=== PATIENT | female | born 1985 | race Caucasian/White ===

== ENCOUNTER 2016-11-24 21:11 | Inpatient (IN) ==
[2016-11-24 21:47] LABS: Bilirubin,Urine Negative (Negative); Blood,Urine Small (Negative); Clarity,Urine Cloudy (Clear); Color,Urine Yellow (Yellow); Glucose,Urine (UA) Normal (Normal); Ketones,Urine Negative (Negative); Leukocyte Esterase,Urine Large (Negative); Nitrite,Urine Positive (Negative); PH,Urine 6.5 pH Units (5.0-8.0); Protein,Urine 30 mg/dL (Neg-Trace); Urobilinogen,Urine Normal (Normal)
[2016-11-24 21:50] LABS: Bacteria,Urine Many per hpf (None-Few); Hyaline Casts,Urine None Seen per lpf (None-Few); Squamous Epithelial Cell,Urine Many per lpf (None-Few); WBC,Urine TNTC per hpf (0-3)
--- NOTE | 2016-11-24 22:18 | Emergency Department Note ---
START Narrative - START START: I examined this patient and my medical decision-making was reviewed with the HABILITATION ASSISTANT/PA/Advanced Practice Nurse/Resident Physician. I agree with the documented findings, disposition and treatment plan as described except to the extent set forth below. I did see the patient and spoke with her and examine her. She does have a very. She does not have any dysuria or urinary frequency, blood in the urine or stool, vaginal bleeding or discharge noted she does have significant pain at McBurney's point and also does have a positive Rovsing sign. No pelvic pain. No right upper quadrant abdominal pain. Labs and CT results are pending. 2218 I did go back and see the patient on several different medications. The patient does have significant pain which is unchanged and she does now have significant nausea with emesis basin in hand. She is concerned about appendicitis. I have informed her that the CAT scan did not show this and I also did confirm that I spoke with the surgeon who feels the patient should be admitted to medicine due to the significant pain. He started on Rocephin and Prilosec urinary tract infection although she does not have urinary symptoms. She will be able to have sequential exams, IV fluids here in the hospital. Labs are pending. 2310 I did speak with the hospitalist who accepts the patient for admission. [id number]
--- NOTE | 2016-11-24 22:36 | Emergency Department Note ---
Disposition Clinical Impression: Intractable nausea and vomiting Qualifiers: Vomiting type: unspecified Qualified Code(s): R11.2 - Nausea with vomiting, unspecified Disposition: Admitted As Inpatient Prescriptions: Ondansetron HCl [Zofran] 4 mg PO Q6H PRN #20 tablet PRN Reason: Nausea Oxycodone HCl/Acetaminophen [Percocet 5-325 mg Tablet] 1 each PO Q6H #20 tablet Sulfamethoxazole/Trimeth DS [Bactrim DS] 1 each PO BID #20 tablet Referrals: Curtis Elias MD [Primary Care Provider] - Forms: Work/School Release, ED Satisfaction Letter Abdominal Pain HPI - General Chief Complaint: ED Abdominal Pain Stated Complaint: Abd Pain Time Seen by Provider: 11/24/16 21:36 Source: patient - History of Present Illness HPI Narrative: 31-year-old female presents with complaint of abdominal pain of 2 days. Abdominal pain started around the umbilicus and then migrated to the right lower quadrant described as sharp constant. Patient states she has had a few 102 she has been taking Tylenol and ibuprofen. She states she has had nausea vomiting and denies diarrhea. She denies having any recent travel, sick contacts, and outside meals. Patient says she is a history of endometriosis. She has a history of hysterectomy and cholecystectomy. She denies appendectomy. Patient also says she has had midsternal sharp chest pain that started after her abdominal pain that is nonradiating, moves up from the epigastric region to her throat. She denies diaphoresis. She admits for low back pain. Pain Scale: 10 - Related Data Home Medications Medication Instructions Recorded Confirmed HydrOXYzine 25 mg PO DAILY 05/05/15 06/11/15 Ibuprofen 800 mg PO BID PRN 05/05/15 06/11/15 Omeprazole [PriLOSEC] 20 mg PO DAILY 05/05/15 06/11/15 Sucralfate 1 g PO BID 05/05/15 06/11/15 Previous Rx's Medication Instructions Recorded OxyCODONE/APAP 5/325 [Percocet 1 each PO Q6HR PRN #30 tablet 06/11/15 5/325] Ondansetron HCl [Zofran] 4 mg PO Q6H PRN #20 tablet 11/24/16 Oxycodone HCl/Acetaminophen 1 each PO Q6H #20 tablet 11/24/16 [Percocet 5-325 mg Tablet] Sulfamethoxazole/Trimeth DS 1 each PO BID #20 tablet 11/24/16 [Bactrim DS] Allergies Allergy/AdvReac Type Severity Reaction Status Date / Time No Known Allergies Allergy Verified 11/24/16 21:59 Review of Systems: ROS: Constitutional: Admits to fevers denies chills HEENT: Denies blurry vision, ear pain, sore throat, Heart: Admits to chest pain, denies palpitations Lungs: Denies shortness of breath, cough Abdomen: Abdominal pain, nausea, vomiting, denies diarrhea Back: Admits to low back pain : Denies dysuria, Extremeties: Denies leg cramps, swelling Neuro: Denies numbness and tingling Abdominal Pain PMH - Past Medical History Medical history: Reports: no medical history Female Surgical History: Reports: hysterectomy Psychiatric history: Reports: anxiety, depression, panic disorder, prior suicide attempt - Social History Smoking status: Former smoker Alcohol use: Reports: none Drug use: Reports: none Physical Exam General: Alert and oriented to place, time, self HEENT: Head normocephalic and atraumatic. PERRLA, EOMI, moist mucous membranes , neck no tenderness to palpation, absent Lymphadenopathy Heart: Regular rate and rhythm no murmur, Lungs: Clear to auscultation bilaterally Abdomen: Soft, tenderness right lower quadrant, negative De La Fuente's sign positive Rovsing sign. Negative rebound tenderness Extremities: Normal capillary refill, absent pedal edema - General Limitations: no limitations General appearance: alert, in no apparent distress Course - Reevaluation(s) Reevaluation #1: Patient will undergo CT abdomen and pelvis for evaluation of any acute abdominal and pelvic abnormalities. Urinalysis ordered Time: 21:00 Reevaluation #2: CT abdomen and pelvis with no acute changes. Urinalysis shows nitrites, leukocyte esterase and applesauce. Patient's pain may be from UTI. There are no signs of pyelonephritis, ureteral stones, kidney stones on CT of abdomen. Patient has intractable nausea and vomiting and would like to be admitted. Dr. Newman was consulted and stated she is not a surgical abdomen and that there is no evidence of appendicitis. Vital Signs Temperature 98.7 F 11/24/16 21:27 Pulse Rate 81 11/24/16 21:27 Respiratory Rate 16 11/24/16 21:27 Blood Pressure 139/92 11/24/16 21:27 O2 Sat by Pulse Oximetry 99 11/24/16 21:27 Temperature 98.7 F 11/24/16 21:27 Pulse Rate 87 11/24/16 23:00 Respiratory Rate 20 11/24/16 23:00 Blood Pressure 154/98 11/24/16 23:00 O2 Sat by Pulse Oximetry 100 11/24/16 23:00 Oxygen Delivery Oxygen Delivery Room Air Abdominal Pain - MDM Narrative Medical decision making narrative: Patient will be admitted for intractable nausea and vomiting. States she has had a fever of 102.1. She has been taking Tylenol and ibuprofen. CT of abdomen is negative for any surgical abdomen which is confirmed by surgery. Urinalysis indicates UTI. She does not have a urinary symptoms. Patient was started on ceftriaxone, IV fluids, will get CBC and BMP. - Medical Records Medical records reviewed: Yes I reviewed the patient's medical records. - Lab Data Lab results reviewed: Yes I reviewed the patient's lab results. Lab Results 11/24/16 11/24/16 Range/Units 21:30 21:30 Urine Color Yellow (Yellow) Urine Clarity Cloudy A (Clear) Urine pH 6.5 (5.0-8.0) pH Units Ur Specific [place] 1.010 (1.010-1.025) Urine Protein 30 H (Neg-Trace) mg/dL Urine Glucose (UA) Normal (Normal) mg/dL Urine Ketones Negative (Negative) mg/dL Urine Blood Small H (Negative) Urine Nitrite Positive A (Negative) Urine Bilirubin Negative (Negative) Urine Urobilinogen Normal (Normal) mg/dL Ur Leukocyte Esterase Large H (Negative) Urine Microscopic RBC 5-15 H (0-3) per hpf Urine Microscopic WBC TNTC H (0-3) per hpf Ur Squamous Epith Cells Many H (None-Few) per lpf Urine Bacteria Many H (None-Few) per hpf Hyaline Casts None Seen (None-Few) per lpf Ur Culture Indicated? YES A (NO) Urine Test Negative (Negative) - Radiology Data Radiology results reviewed: Yes I reviewed the patient's radiology results.
[2016-11-24] MEDS ORDERED: Ondansetron 4 MG/2 ML VIAL IVP ONE (23:08)
[2016-11-24] MEDS ORDERED: *HR* HYDROmorphone (PF) 1 MG/ML SYRINGE IVP ONE (23:08)
[2016-11-24] MEDS ORDERED: 0.9 % Sodium Chloride 1,000 ML IVC ONE (23:08)
[2016-11-24 23:21] LABS: Hematocrit 39.9 % (35.3-44.9); Hemoglobin 13.1 g/dL (11.5-15.4); Mean Corpuscular HGB Conc 32.8 g/dL (31.6-35.5); Mean Corpuscular Hemoglobin 28.2 pg (28.0-33.3); Mean Platelet Volume 9.1 fL (9.4-12.4); Platelet Count 349 K/mcL (140-400); Red Blood Count 4.64 M/mcL (3.82-4.97); Red Cell Distribution Width 13.4 % (11.5-14.5)
--- NOTE | 2016-11-24 23:28 | Internal Med History&Physical ---
Date of Encounter: 11/24/16 Time of Encounter: 23:28 Assessment and Plan (1) Sepsis Current visit: Yes Status: Acute Secondary to urinary tract infection Unable to keep anything down, abdominal pain worrisome for appendicitis although CT scan did not show any abnormality initially. Continue Rocephin IV, IV fluids May repeat another CT scan with contrast in the morning and reconsult surgery if appendicitis suspect that again Protonix IV for GI prophylaxis and sequential compression devices for DVT prophylaxis. The patient will be admitted as inpatient, expected to stay more than 2 midnights. Full code. Time spent on this admission 40 minutes. High risk for sepsis Qualifiers: Sepsis type: sepsis due to unspecified organism Qualified Code(s): A41.9 - Sepsis, unspecified organism (2) UTI (urinary tract infection) Current visit: Yes Status: Acute Qualifiers: Urinary tract infection type: acute cystitis Hematuria presence: with hematuria Qualified Code(s): N30.01 - Acute cystitis with hematuria (3) Accelerated hypertension Current visit: Yes Status: Acute Likely secondary to pain May use some hydralazine IV as needed (4) Dehydration Current visit: Yes Status: Acute Continue IV fluids (5) Abdominal pain Current visit: Yes Status: Acute Repeat CT scan in the morning with oral and IV contrast Patient has history of endometriosis Check LFTs and lactic acid Qualifiers: Abdominal location: generalized Qualified Code(s): R10.84 - Generalized abdominal pain (6) Intractable nausea and vomiting Current visit: Yes Status: Acute Qualifiers: Vomiting type: unspecified Qualified Code(s): R11.2 - Nausea with vomiting , unspecified Internal Medicine - H&P: HPI Chief complaint: Abdominal pain Admitted From: Emergency Dept History of present illness: Ms. Chaudhary is a 31 year old female with a past medical history of GERD and endometriosis, who came to emergency room complaining of abdominal pain that started 2 days ago. Her pain was described as stabbing-like sharp initially in the umbilical area and then migrating to the right lower quadrant. She said that she run a fever 102.[address] scan of the abdomen did not show any abnormality. She says that the pain is radiating to her back and is 10 out of 10 in intensity, white blood cell count is 12.2. Dr. Newman was contacted by the emergency room physician who recommended the patient to be admitted for observation. UA is positive for nitrates to numerous to count white blood cells and many bacteria although she denies any dysuria. She was given a dose of Rocephin in the emergency room. Was not able to be discharged that she is constantly vomiting, has vomited 6 times today and was not able to keep anything down. The patient appears dehydrated and ill. Past Med Surg Social Fam HX - Past Medical History Medical history: other (GERD, anxiety, depression and prior suicidal attempt, panic disorder, endometriosis) Psychiatric history: anxiety, depression, panic disorder, prior suicide attempt - Past Surgical History Surgical History: cholecystectomy, hysterectomy, other (Left ankle surgery) - Social History Smoking Status: Former smoker Smokeless Tobacco Status: No Alcohol use: none Drug use: none - Additional Family History Additional family history: Father with COPD, mother with diabetes and hypertension, maternal grandmother with diabetes Internal Medicine - H&P: Meds HydrOXYzine 25 mg PO DAILY 05/05/15 [History] Ibuprofen 800 mg PO BID PRN 05/05/15 [History] Omeprazole [PriLOSEC] 20 mg PO DAILY 05/05/15 [History] Sucralfate 1 g PO BID 05/05/15 [History] OxyCODONE/APAP 5/325 [Percocet 5/325] 1 each PO Q6HR PRN #30 tablet 06/11/15 [Rx ] Ondansetron HCl [Zofran] 4 mg PO Q6H PRN #20 tablet 11/24/16 [Rx] Oxycodone HCl/Acetaminophen [Percocet 5-325 mg Tablet] 1 each PO Q6H #20 tablet 11/24/16 [Rx] Sulfamethoxazole/Trimeth DS [Bactrim DS] 1 each PO BID #20 tablet 11/24/16 [Rx] Allergies No Known Allergies Allergy (Verified 11/24/16 21:59) All Systems PM: A 10-system review of systems was performed and is negative for pertinent findings except as documented above in the HPI. Review of systems: Shortness of breath, no chest pain, abdominal pain persists. No diarrhea or sick contacts. Other systems out of the Ten reviewed were negative - Constitutional Vitals: Temp Pulse Resp BP Pulse Ox 98.7 F 87 20 154/98 100 11/24/16 21:27 11/24/16 23:00 11/24/16 23:00 11/24/16 23:00 11/24/16 23:00 General appearance: Present: A&O X 3 Exam: Dehydrated - Head Head exam: Present: atraumatic, normocephalic - Eye Eye exam: Present: PERRL, conjuntiva pink, sclera anicteric Pupils: Present: PERRL - Neck Neck exam general surgery: Present: supple, trachea midline. Absent: lymphadenopathy - Respiratory Respiratory exam: Present: CTAB. Absent: accessory muscle use, rales, rhonchi, wheezes - Cardiovascular Cardiovascular exam: Present: RRR, +S1, +S2. Absent: diastolic murmur, gallop, rubs, systolic murmur - GI/Abdominal GI/Abdominal exam: Present: normal bowel sounds, soft, tenderness (Tenderness in the right lower quadrant in the epigastric area), no peritoneal signs. Absent: distended - Extremities Exam Extremities exam: Present: warm, radial pulses palpable and symetrical. Absent : calf tenderness, cyanotic, pedal edema - Neurological Exam Neurological exam: Present: CN II-XII intact, oriented X3, no focal deficits. Absent: pronater drift, facial droop, speech deficit - Skin Skin exam: Present: dry, intact Internal Med - H&P Results - Labs CBC & Chem 7: 11/24/16 23:13 11/24/16 23:13 Labs: Short CBC 11/24/16 Range/Units 23:13 WBC 12.2 H (4.3-11.1) K/mcL Hgb 13.1 (11.5-15.4) g/dL Hct 39.9 (35.3-44.9) % Plt Count 349 (140-400) K/mcL Urine 11/24/16 Range/Units 21:30 Urine Color Yellow (Yellow) Urine Clarity Cloudy A (Clear) Urine pH 6.5 (5.0-8.0) pH Units Ur Specific [place] 1.010 (1.010-1.025) Urine Protein 30 H (Neg-Trace) mg/dL Urine Glucose (UA) Normal (Normal) mg/dL - Impressions ITS Impressions Abdomen/Pelvis CT 11/24/16 21:46 IMPRESSION: No evidence for ureteral stone or kidney stone The appendix is normal D/ / Ahsan Garnett MD / Ahsan Garnett MD Interpreting Provider: Ahsan Garnett MD
[2016-11-24 23:33] LABS: BUN/Creatinine Ratio 12 (6-26); Blood Urea Nitrogen 9 mg/dL (7-20); Calcium 9.4 mg/dL (8.6-10.8); Carbon Dioxide 26 mEq/L (19-29); Chloride 103 mEq/L (98-109); Glucose 97 mg/dL (70-99); Osmolality,Calculated 287 (280-300); Potassium 3.9 mEq/L (3.5-4.5); Sodium 139 mEq/L (136-145); eGFR For African Americans > 60 (> 60); eGFR For Non-African Americans > 60 (> 60)
[2016-11-24] MEDS ORDERED: *HR* Morphine 2 MG/ML SYRINGE IV PRN (23:39)
[2016-11-24] MEDS ORDERED: Ondansetron 4 MG/2 ML VIAL IVP PRN (23:40)
[2016-11-24] MEDS ORDERED: Naloxone 0.4 MG/ML INJ IVP PRN (23:40)
[2016-11-24] MEDS ORDERED: Acetaminophen 325 MG TABLET PO PRN (23:40)
[2016-11-25 00:17] LABS: Alanine Aminotransferase 12 Units/L (0-55); Albumin 3.8 g/dL (3.5-5.0); Albumin/Globulin Ratio 1.1 (1.1-2.2); Alkaline Phosphatase 83 Units/L (38-126); Aspartate Amino Transferase 11 Units/L (5-34); Bilirubin,Direct 0.2 mg/dL (0.0-0.5); Bilirubin,Indirect 0.2 mg/dL (0.0-1.2); Bilirubin,Total 0.4 mg/dL (0.2-1.2); Globulin 3.6 g/dL (2.4-3.5); Total Protein 7.4 g/dL (6.0-8.3)
[2016-11-25 00:18] LABS: INR 1.1; Prothrombin Time 12.4 Seconds (9.4-12.1)
[2016-11-25] MEDS: Ringers Solution, Lactated 1,000 ML IVC SCH ×2 (00:58→06:44)
[2016-11-25] MEDS: Pantoprazole 40 MG VIAL IV SCH ×2 (00:58→07:41)
[2016-11-25 01:24] LABS: Basophils # 0.1 K/mcL (0.0-0.2); Basophils % 0.4 %; Eosinophils # 0.3 K/mcL (0.0-0.6); Eosinophils % 2.1 %; Hematocrit 38.4 % (35.3-44.9); Hemoglobin 12.7 g/dL (11.5-15.4); Immature Granulocytes % 0.3 % (0-4); Lymphocytes # 2.6 K/mcL (0.6-4.6); Lymphocytes % 21.6 %; Mean Corpuscular HGB Conc 33.1 g/dL (31.6-35.5); Mean Corpuscular Hemoglobin 28.9 pg (28.0-33.3); Mean Corpuscular Volume 87.5 fL (83.0-100.0); Mean Platelet Volume 9.6 fL (9.4-12.4); Monocytes # 0.8 K/mcL (0.0-1.3); Monocytes % 6.7 %; Neutrophils # 8.3 K/mcL (1.6-8.9); Platelet Count 302 K/mcL (140-400); Red Blood Count 4.39 M/mcL (3.82-4.97); Red Cell Distribution Width 13.3 % (11.5-14.5); Segmented Neutrophils % 68.9 %
[2016-11-25 01:40] LABS: BUN/Creatinine Ratio 13 (6-26); Blood Urea Nitrogen 9 mg/dL (7-20); Carbon Dioxide 23 mEq/L (19-29); Chloride 105 mEq/L (98-109); Potassium 3.9 mEq/L (3.5-4.5); Sodium 138 mEq/L (136-145)
[2016-11-25 01:41] LABS: Calcium 8.7 mg/dL (8.6-10.8); Glucose 118 mg/dL (70-99); Osmolality,Calculated 286 (280-300); eGFR For African Americans > 60 (> 60); eGFR For Non-African Americans > 60 (> 60)
[2016-11-25] MEDS ORDERED: *HR* Promethazine 25 MG/ML VIAL IVP PRN ×2 (08:20→08:34)
[2016-11-25] MEDS ORDERED: *HR* HYDROcodone/Acet 5/325 mg TABLET PO PRN ×2 (08:20→11:40)
[2016-11-25] MEDS: Ondansetron 4 MG/2 ML VIAL IVP PRN ×2 (08:41→17:56)
[2016-11-25] MEDS: 0.9 % Sodium Chloride 1,000 ML IVC SCH ×2 (08:42→16:45)
[2016-11-25] MEDS ORDERED: Ketorolac 30 MG/ML VIAL IVP PRN (11:39)
--- NOTE | 2016-11-25 12:05 | Internal Med Progress Note ---
Date of Encounter: 11/25/16 Time of Encounter: 09:30 - Assessment and plan (1) Abdominal pain Current Visit: Yes Status: Acute Assessment and plan: Pain is improving. CT consistent with pyelitis, ureteritis, and cystitis. Positive urinary tract infection, continue ceftriaxone, culture pending. Advance diet as tolerated. Of note, patient refusing morphine stating it makes her too nauseated. Toradol added at this time as well as [place]. ITS Impressions Abdomen/Pelvis CT 11/24/16 21:46 IMPRESSION: No evidence for ureteral stone or kidney stone The appendix is normal D/ / Ahsan Garnett MD / Ahsan Garnett MD Interpreting Provider: Ahsan Garnett MD Abdomen/Pelvis CT 11/25/16 07:00 IMPRESSION: 1. Subtle findings suggestive of bilateral pyelitis and ureteritis. 2. Questionable subtle perivesical stranding potentially due to decompression or cystitis. D/ / Curtis Castellano MD / Curtis Castellano MD Interpreting Provider: Curtis Castellano MD Qualifiers: Abdominal location: generalized Qualified Code(s): R10.84 - Generalized abdominal pain (2) UTI (urinary tract infection) Current Visit: Yes Status: Acute Qualifiers: Urinary tract infection type: acute cystitis Hematuria presence: with hematuria Qualified Code(s): N30.01 - Acute cystitis with hematuria (3) Sepsis Current Visit: Yes Status: Acute Assessment and plan: Resolving. Heart rate and blood pressure are stable. Mild leukocytosis trending down. No lactic acidosis. We will continue to monitor. Qualifiers: Sepsis type: sepsis due to unspecified organism Qualified Code(s): A41.9 - Sepsis, unspecified organism (4) Intractable nausea and vomiting Current Visit: Yes Status: Resolved Assessment and plan: Patient now tolerating full liquid, will advance her diet as she tolerates. Ondansetron and Phenergan as needed. Qualifiers: Vomiting type: unspecified Qualified Code(s): R11.2 - Nausea with vomiting , unspecified (5) Accelerated hypertension Current Visit: Yes Status: Resolved Assessment and plan: Was likely secondary to severe pain, currently normotensive (6) Dehydration Current Visit: Yes Status: Acute Assessment and plan: Continue IV fluids and by mouth intake as she tolerates - Subjective Interval history: Patient seen and examined. On examination, patient sitting upright in bed eating Jell-O. Patient stating her pain is better but still rates it as moderate. She denies any nausea or vomiting at this time. - Constitutional Vitals: Temp Pulse Resp BP Pulse Ox 98.0 F 68 15 113/71 97 11/25/16 11:55 11/25/16 11:55 11/25/16 11:55 11/25/16 11:55 11/25/16 11:55 General appearance: Present: A&O X 3, pleasant, no acute distress, answers questions appropriately - Head Head exam: Present: atraumatic, normocephalic - Eye Eye exam: Present: PERRL, conjuntiva pink, sclera anicteric Pupils: Present: PERRL - Neck Neck exam general surgery: Present: supple, trachea midline. Absent: lymphadenopathy - Respiratory Respiratory exam: Present: CTAB. Absent: accessory muscle use, rales, respiratory distress, rhonchi, wheezes - Cardiovascular Cardiovascular exam: Present: RRR, +S1, +S2. Absent: diastolic murmur, gallop, rubs, systolic murmur - GI/Abdominal GI/Abdominal exam: Present: normal bowel sounds, soft, tenderness, no peritoneal signs. Absent: distended - Extremities Exam Extremities exam: Present: warm, radial pulses palpable and symetrical. Absent : calf tenderness, cyanotic, pedal edema - Neurological Exam Neurological exam: Present: alert, CN II-XII intact, oriented X3, no focal deficits, strengths equal and symetr throughout. Absent: pronater drift, facial droop, speech deficit - Skin Skin exam: Present: dry, intact, pallor, warm Internal Medicine: Result - Labs CBC & Chem 7: 11/25/16 01:12 11/25/16 01:12 Labs: Short CBC 11/25/16 Range/Units 01:12 WBC 12.0 H (4.3-11.1) K/mcL Hgb 12.7 (11.5-15.4) g/dL Hct 38.4 (35.3-44.9) % Plt Count 302 (140-400) K/mcL Neutrophils # 8.3 (1.6-8.9) K/mcL BMP 11/25/16 01:12 Sodium 138 Potassium 3.9 Chloride 105 Carbon Dioxide 23 BUN 9 Creatinine 0.67 Glucose 118 H Calcium 8.7 - ABG Interpretation ABG results: PT/INR, D-dimer PT 12.4 Seconds (9.4-12.1) H 11/25/16 00:01 - Impressions Impressions Abdomen/Pelvis CT 11/25/16 07:00 IMPRESSION: 1. Subtle findings suggestive of bilateral pyelitis and ureteritis. 2. Questionable subtle perivesical stranding potentially due to decompression or cystitis. D/ / Curtis Castellano MD / Curtis Castellano MD Interpreting Provider: Curtis Castellano MD - VTE Documentation of Mechanical Device: Intermittent pneumatic compression device Consult Discharge Plan - Plan Referrals: Curtis Elias MD [Primary Care Provider] -
[2016-11-26] MEDS: 0.9 % Sodium Chloride 1,000 ML IVC SCH ×4 (00:29→11:46)
[2016-11-26 07:39] LABS: Basophils % 0.4 %; Eosinophils # 0.2 K/mcL (0.0-0.6); Hematocrit 37.1 % (35.3-44.9); Hemoglobin 11.8 g/dL (11.5-15.4); Immature Granulocytes % 0.4 % (0-4); Lymphocytes # 2.7 K/mcL (0.6-4.6); Lymphocytes % 35.8 %; Mean Corpuscular HGB Conc 31.8 g/dL (31.6-35.5); Mean Corpuscular Volume 88.1 fL (83.0-100.0); Mean Platelet Volume 9.7 fL (9.4-12.4); Monocytes # 0.6 K/mcL (0.0-1.3); Monocytes % 7.4 %; Neutrophils # 3.9 K/mcL (1.6-8.9); Platelet Count 338 K/mcL (140-400); Red Blood Count 4.21 M/mcL (3.82-4.97); Red Cell Distribution Width 13.4 % (11.5-14.5)
[2016-11-26 08:25] LABS: BUN/Creatinine Ratio 6 (6-26); Calcium 8.9 mg/dL (8.6-10.8); Carbon Dioxide 19 mEq/L (19-29); Chloride 110 mEq/L (98-109); Glucose 79 mg/dL (70-99); Osmolality,Calculated 286 (280-300); Potassium 3.9 mEq/L (3.5-4.5); Sodium 140 mEq/L (136-145); eGFR For African Americans > 60 (> 60); eGFR For Non-African Americans > 60 (> 60)
[2016-11-26] MEDS: Pantoprazole 40 MG VIAL IV SCH (08:29)
[2016-11-26 08:30] LABS: Blood Urea Nitrogen 4 mg/dL (7-20)
--- NOTE | 2016-11-26 14:55 | Internal Med Progress Note ---
Date of Encounter: 11/26/16 Time of Encounter: 12:00 - Assessment and plan (1) Abdominal pain Current Visit: Yes Status: Acute Assessment and plan: Pain continues to improve. CT consistent with pyelitis, ureteritis, and cystitis. Positive urinary tract infection, continue ceftriaxone, prelimary culture with GNR- sensitivities pending. Regular diet as tolerated. Of note, patient refusing morphine stating it makes her too nauseated. Toradol added yesterday as well as [place]. Should have sensitivity report back tomorrow, suspect she will be able to be discharged after sensitivity report is pending obtained. ITS Impressions Abdomen/Pelvis CT 11/24/16 21:46 IMPRESSION: No evidence for ureteral stone or kidney stone The appendix is normal D/ / Ahsan Garnett MD / Ahsan Garnett MD Interpreting Provider: Ahsan Garnett MD Abdomen/Pelvis CT 11/25/16 07:00 IMPRESSION: 1. Subtle findings suggestive of bilateral pyelitis and ureteritis. 2. Questionable subtle perivesical stranding potentially due to decompression or cystitis. D/ / Curtis Castellano MD / Curtis Castellano MD Interpreting Provider: Curtis Castellano MD Qualifiers: Abdominal location: generalized Qualified Code(s): R10.84 - Generalized abdominal pain (2) UTI (urinary tract infection) Current Visit: Yes Status: Acute Qualifiers: Urinary tract infection type: acute cystitis Hematuria presence: with hematuria Qualified Code(s): N30.01 - Acute cystitis with hematuria (3) Sepsis Current Visit: Yes Status: Resolved Assessment and plan: Resolved. Leukocytosis resolved. Heart rate blood pressure remained stable. No lactic acidosis. Patient alert and oriented 3. Qualifiers: Sepsis type: sepsis due to unspecified organism Qualified Code(s): A41.9 - Sepsis, unspecified organism (4) Intractable nausea and vomiting Current Visit: Yes Status: Resolved Assessment and plan: Patient now tolerating a regular diet. Ondansetron and Phenergan as needed. Qualifiers: Vomiting type: unspecified Qualified Code(s): R11.2 - Nausea with vomiting , unspecified (5) Accelerated hypertension Current Visit: Yes Status: Resolved Assessment and plan: Was likely secondary to severe pain, currently normotensive (6) Dehydration Current Visit: Yes Status: Resolved Assessment and plan: Continue IV fluids and by mouth intake as she tolerates - Subjective Interval history: Patient seen and examined. On examination, patient sitting upright in bed conversing with her . She states she is still having pain but states it is much improved. She denies any vomiting but continues to endorse nausea. She states she is eating well. - Constitutional Vitals: Temp Pulse Resp BP Pulse Ox 98.1 F 79 16 111/73 96 11/26/16 11:31 11/26/16 11:31 11/26/16 11:31 11/26/16 11:31 11/26/16 11:31 General appearance: Present: A&O X 3, pleasant, no acute distress, answers questions appropriately - Head Head exam: Present: atraumatic, normocephalic - Eye Eye exam: Present: PERRL, conjuntiva pink, sclera anicteric Pupils: Present: PERRL - Neck Neck exam general surgery: Present: supple, trachea midline. Absent: lymphadenopathy - Respiratory Respiratory exam: Present: CTAB. Absent: accessory muscle use, rales, respiratory distress, rhonchi, wheezes - Cardiovascular Cardiovascular exam: Present: RRR, +S1, +S2. Absent: diastolic murmur, gallop, rubs, systolic murmur - GI/Abdominal GI/Abdominal exam: Present: normal bowel sounds, soft, tenderness, no peritoneal signs. Absent: distended - Extremities Exam Extremities exam: Present: warm, radial pulses palpable and symetrical. Absent : calf tenderness, cyanotic, pedal edema - Back Exam Back exam: Present: CVA tenderness (L), CVA tenderness (R) - Neurological Exam Neurological exam: Present: alert, CN II-XII intact, normal gait, oriented X3, no focal deficits, strengths equal and symetr throughout. Absent: pronater drift, facial droop, speech deficit - Skin Skin exam: Present: dry, intact, pallor, warm Internal Medicine: Result - Labs CBC & Chem 7: 11/26/16 06:38 11/26/16 06:38 Labs: Short CBC 04/23/17 Range/Units 06:38 WBC 7.4 (4.3-11.1) K/mcL Hgb 11.8 (11.5-15.4) g/dL Hct 37.1 (35.3-44.9) % Plt Count 338 (140-400) K/mcL Neutrophils # 3.9 (1.6-8.9) K/mcL BMP 11/26/16 06:38 Sodium 140 Potassium 3.9 Chloride 110 H Carbon Dioxide 19 BUN 4 L Creatinine 0.65 Glucose 79 Calcium 8.9 - ABG Interpretation ABG results: PT/INR, D-dimer PT 12.4 Seconds (9.4-12.1) H 11/25/16 00:01 - VTE Documentation of Mechanical Device: Intermittent pneumatic compression device Consult Discharge Plan - Plan Referrals: Curtis Elias MD [Primary Care Provider] -
[2016-11-26] MEDS ORDERED: 0.9 % Sodium Chloride 1,000 ML IVC SCH (16:28)
[2016-11-27 07:12] VITALS: BP 113/77
[2016-11-27] MEDS: Pantoprazole 40 MG VIAL IV SCH (08:49)
--- NOTE | 2016-11-27 10:01 | Discharge Summary ---
Date of Encounter: 11/27/16 Time of Encounter: 09:15 - Discharge Diagnosis (1) Abdominal pain Priority: Primary Status: Acute Comments: Pain continues to improve. CT consistent with pyelitis, ureteritis, and cystitis. Positive urinary tract infection, pansensitive e coli. Regular diet as tolerated. Qualifiers: Abdominal location: generalized Qualified Code(s): R10.84 - Generalized abdominal pain (2) UTI (urinary tract infection) Priority: Primary Status: Acute Qualifiers: Urinary tract infection type: acute cystitis Hematuria presence: with hematuria Qualified Code(s): N30.01 - Acute cystitis with hematuria (3) Sepsis Priority: Primary Status: Resolved Qualifiers: Sepsis type: sepsis due to unspecified organism Qualified Code(s): A41.9 - Sepsis, unspecified organism (4) Intractable nausea and vomiting Priority: Primary Status: Resolved Qualifiers: Vomiting type: unspecified Qualified Code(s): R11.2 - Nausea with vomiting , unspecified (5) Accelerated hypertension Priority: Primary Status: Resolved (6) Dehydration Priority: Primary Status: Resolved - Discharge Medications Prescriptions: HYDROcodone/Acet 5/325 mg [[place] 5-325 mg] 1 tab PO Q6HR PRN #12 tablet PRN Reason: Pain Ciprofloxacin HCl [Cipro] 500 mg PO BID #14 tablet Docusate [Colace] 100 mg PO BID PRN #20 capsule PRN Reason: Constipation Home Medications: Venlafaxine HCl [Venlafaxine HCl ER] 225 mg PO DAILY 11/25/16 [History] Ciprofloxacin HCl [Cipro] 500 mg PO BID #14 tablet 11/27/16 [Rx] Docusate [Colace] 100 mg PO BID PRN #20 capsule 11/27/16 [Rx] HYDROcodone/Acet 5/325 mg [[place] 5-325 mg] 1 tab PO Q6HR PRN #12 tablet [Rx] Allergies/Adverse Reactions: Allergies No Known Allergies Allergy (Verified 11/24/16 21:59) Procedures/tests Complete & Pending: Procedures Performed prior 72 hours Category Date Time Status CT abd pelvis w iv and oral [CT] Routine Cat Scan 11/25/16 07:00 Completed Date of admission: 11/24/16 23:40 Primary care physician: Stephie Freeman Discharging clinician: Charlee Chen Anticipated date of discharge: 11/27/16 - Patient Status Disposition: Home, Self-Care Condition: Fair Functional capacity at discharge: independent ambulation Overall status at discharge: patient is progressing back to baseline - Discharge Instructions Follow Up With: Curtis Elias MD [Primary Care Provider] - Additional Instructions: Follow-up with primary care provider within one to 2 weeks. - Diet and Activity Activity: increase activity as tolerated, return to work once cleared by your PCP/specialist Diet: low salt diet Hospital course: Ms. Chaudhary is a 31 year old female with past medical history of GERD, endometriosis, panic disorder, status post cholecystectomy and hysterectomy, former tobacco abuse. Patient presented to the emergency department chief complaint abdominal pain 2 days prior to presentation. Pain was described as sharp and stabbing and was initially in her umbilical area and then migrated down to her right lower quadrant. She was also febrile up to 102.3 on day of presentation. Initial abdominal CT was unremarkable. Patient also had 10 out of [address] Newman was brought on board per the emergency department who recommended she be admitted for observation. Repeat abdominal and pelvic CT revealing bilateral pyelitis, ureteritis, and cystitis consistent with urinary tract infection and early pyelonephritis. Patient was treated with ceftriaxone and IV fluids. She was able to tolerate a regular diet and her pain lessened greatly. She was initially septic which resolved. Leukocytosis resolved. No lactic acidosis. Blood pressure and heart rate were controlled. Sensitivity report with pansensitive Escherichia coli and the patient was sent home on ciprofloxacin. She was discharged home in stable condition with close outpatient follow-up recommended. ITS Impressions Abdomen/Pelvis CT 11/24/16 21:46 IMPRESSION: No evidence for ureteral stone or kidney stone The appendix is normal D/ / Ahsan Garnett MD / Ahsan Garnett MD Interpreting Provider: Ahsan Garnett MD Abdomen/Pelvis CT 11/25/16 07:00 IMPRESSION: 1. Subtle findings suggestive of bilateral pyelitis and ureteritis. 2. Questionable subtle perivesical stranding potentially due to decompression or cystitis. D/ / Curtis Castellano MD / Curtis Castellano MD Interpreting Provider: Curtis Castellano MD - Time Spent with Patient Total time spent providing and/or coordinating discharge services: - Constitutional Vitals: Temp Pulse Resp BP Pulse Ox 98.0 F 74 14 113/77 95 11/27/16 07:09 11/27/16 07:09 11/27/16 07:09 11/27/16 07:09 11/27/16 07:09 General appearance: Present: A&O X 3, pleasant, no acute distress, answers questions appropriately - Head Head exam: Present: atraumatic, normocephalic - Eye Eye exam: Present: PERRL, conjuntiva pink, sclera anicteric Pupils: Present: PERRL - Neck Neck exam general surgery: Present: supple, trachea midline. Absent: lymphadenopathy - Respiratory Respiratory exam: Present: CTAB. Absent: accessory muscle use, rales, respiratory distress, rhonchi, wheezes - Cardiovascular Cardiovascular exam: Present: RRR, +S1, +S2. Absent: diastolic murmur, gallop, rubs, systolic murmur - GI/Abdominal GI/Abdominal exam: Present: normal bowel sounds, soft, tenderness, no peritoneal signs. Absent: distended - Extremities Exam Extremities exam: Present: warm, radial pulses palpable and symetrical. Absent : calf tenderness, cyanotic, pedal edema - Back Exam Back exam: Absent: CVA tenderness (L), CVA tenderness (R) - Neurological Exam Neurological exam: Present: alert, CN II-XII intact, normal gait, oriented X3, no focal deficits, strengths equal and symetr throughout. Absent: pronater drift, facial droop, speech deficit - Skin Skin exam: Present: dry, intact, normal color, warm - VTE Documentation of Mechanical Device: Intermittent pneumatic compression device
== END 2016-11-27 10:55 | disposition home or self-care (01) | DRG 872 ==
LOC: 3BNU 21:11 → EMEROO 21:11 → 3BNU 23:36
PROVIDERS: ADMIT Internal Medicine; ATTEND Nurse Practitioner Family